=== PATIENT | male | born 1985 | race Caucasian/White ===

== ENCOUNTER 2020-02-04 08:07 | Outpatient (REF) | payer OTHER, SELFPAY ==
--- NOTE | 2020-02-04 08:10 | FL_ITS ---
EXAMINATION: FL BARIUM SWALLOW CLINICAL INFORMATION: Dysphagia. COMPARISON: None TECHNIQUE: Barium swallow examination is performed using fluoroscopic evaluation in addition to multiple fluoroscopic spot views. The patient is imaged both upright and prone and using both thick and thin sulfate along with effervescent granules. Fluoroscopy time: 1.6 minutes DAP: 11.505 Gycm2 Images: 53 FINDINGS: Following oral administration of thick barium and barium-coated turkey in upright view and different positions, there is normal propagation bolus from the oral cavity through the pharynx, esophagus into stomach without any evidence of obstruction, narrowing or stricture. No laryngeal penetration or aspiration seen. On oral administration of thin barium in prone lying position, there is normal distention of esophagus without intraluminal filling defect or narrowing. The GE junction is widely patent. On placing patient supine and in decubitus views, there is no hiatal hernia or reflux seen. FL/FL barium swallow IMPRESSION: Unremarkable barium swallow. Especially no evidence of esophageal obstruction or narrowing. No hiatal hernia or gastroesophageal reflux.
== END 2020-02-04 08:08 | disposition home or self-care (01) ==
LOC: HO.XRAY 08:07
PROVIDERS: PCP Internal Medicine; Visit Provider Internal Medicine Gastroenterology
DX: R13.12 Dysphagia, oropharyngeal phase (principal)
CPT/HCPCS: 74220

== ENCOUNTER 2020-02-11 22:07 | Emergency (ER) | payer OTHER, SELFPAY ==
--- NOTE | 2020-02-11 | XR_ITS ---
EXAMINATION: XR CHEST CLINICAL INFORMATION: Productive cough. COMPARISON: None TECHNIQUE: 2 views of the chest were obtained. FINDINGS: No significant abnormality is noted involving the heart, lungs, mediastinum, bony thorax or soft tissues. XR/XR chest 2V IMPRESSION: Unremarkable chest examination.
--- NOTE | 2020-02-11 22:23 | ECG_ITS ---
Test Reason : CHEST PAIN Blood Pressure : / mmHG Vent. Rate : 109 BPM Atrial Rate : 109 BPM P-R Int : 144 ms QRS Dur : 082 ms QT Int : 332 ms P-R-T Axes : 057 029 050 degrees QTc Int : 447 ms Sinus tachycardia Otherwise normal ECG No significant changes when compared with the previous EKG of 27 mar 2017 Referred By: Perla Bush Electronically Signed By:ENRIKE COATS
[2020-02-11 22:39] VITALS: BP 111/71; PULSE 96; RESP 16; TEMP 37.4; O2SAT 96; BMI 25.1
[2020-02-11 23:14] VITALS: PULSE 89
--- NOTE | 2020-02-11 23:43 | XR_ITS ---
EXAMINATION: XR CHEST CLINICAL INFORMATION: Chest pain COMPARISON: Earlier same date TECHNIQUE: 2 views of the chest were obtained. FINDINGS: No significant abnormality is noted involving the heart, lungs, mediastinum, bony thorax or soft tissues. XR/XR chest 2V IMPRESSION: Unremarkable examination.
--- NOTE | 2020-02-11 23:45 | ED.CHESTPAIN ---
HPI - Chest Pain General Chief Complaint: Chest Pain Stated Complaint: chest pain Time Seen by Provider: 02/11/20 22:23 Source: patient Mode of arrival: ambulatory Limitations: no limitations History of Present Illness HPI narrative: 34-year-old male who presents to emergency department for evaluation of chest pain. Patient states this morning at around 10:00 a.m. when he was lying on his couch had a sudden onset of pain in his chest. Describes the pain is a constant, pressure-like pain which waxes and wanes in intensity. States the pain is 2 to 3/10 at its most. States the pain does radiate to his left arm and he describes the pain in his left arm as heaviness which is also 2 to 3/10. Denied diaphoresis, nausea or vomiting. He denied shortness of breath but he does have dyspnea on exertion. He believes that the pain is exacerbated by exertion. He has had a dry, nonproductive cough x1 month. The patient denied fever, chills, abdominal pain, diarrhea, myalgias, arthralgias, loss of sense of taste or smell. He denied leg pain or swelling. He has not been any long trips. His only cardiac risk factor includes smoking cigarettes. Related Data Allergies Allergy/AdvReac Type Severity Reaction Status Date / Time watermelon [WATERMELON] Allergy Unknown SWELLING Verified 02/11/20 22:39 Review of Systems Review of Systems: Yes all other systems are reviewed and are negative Constitutional: Constitutional: Reports as per HPI Eyes: Eyes: Reports as per HPI ENT: Reports as per HPI Cardiovascular: Cardiovascular: Reports as per HPI Respiratory: Respiratory: Reports as per HPI Gastrointestinal: Gastrointestinal: Reports as per HPI Genitourinary: Genitourinary: Reports as per HPI Musculoskeletal: Musculoskeletal: Reports as per HPI Integumentary/Breasts: Skin/Breast: Reports as per HPI Neurologic: Reports as per HPI and Reports Abnormal speech present Psychiatric: Psychiatric: Reports as per HPI Allergic/Immunologic: Allergic/Immunologic: Reports as per HPI PMFSH Past Medical History PMF Narrative: The patient smokes 1/2 pack of cigarettes per day times 17 years. He denies alcohol use. He smokes marijuana daily. Medical History GERD (gastroesophageal reflux disease) No known health problems Social History Social History Smoking Status: Current every day smoker Use of substances other than those prescribed or required for medical reasons: Yes Substance Use Type: Marijuana Substance Use Frequency: Daily Advance Directives: No Advance Directives Information Provided: No Physical Exam Vital Signs: Vital Signs: Last Vital Signs Temp 99.3 F 02/11/20 22:39 Pulse 66 02/12/20 01:43 Resp 16 02/12/20 01:43 BP 102/68 02/12/20 01:43 Pulse Ox 98 02/12/20 01:43 Body Mass Index 25.1 Const: General: cooperative, no acute distress, alert and awake Orientation/consciousness: oriented to person and oriented to place Limitations: no limitations HENMT: Head: Yes normal to inspection, Yes normocephalic and Yes atraumatic Ears: external ears normal General nose exam: Normal external nose present Face and sinus: Yes normal facial exam Mouth: Normal oral and palatal mucosa present Throat: Yes posterior oropharynx normal Eyes: General: appearance normal, both eyes and all related structures Periorbital: periorbital findings normal Eyelids: Yes eyelids normal Conjunctivae: conjunctivae normal Sclerae: sclerae normal Corneas: corneas normal Pupils: Equal, round and reactive pupils present Direct Ophthalmoscopy: normal light reflex Neck: Neck: Yes normal visual inspection and Yes supple Lymphatic: no lymphadenopathy noted Chest: Chest palpation & inspection: normal inspection of the chest and tenderness sternum and costochondral junction Resp: Effort & Inspection: normal respiratory effort, abnormal respiratory pattern, no audible wheezes and no respiratory distress Auscultation: clear to auscultation bilaterally, no crackles, no rales, no rhonchi and no wheezes Cardio: Rate: regular rate Rhythm: regular rhythm Heart sounds: S1 normal heart sound present, S2 normal heart sound present and no murmurs GI: Inspection: No distended Palpation (GI): Soft to palpation, nontender, no guarding and No hepatosplenomegaly present Auscultation: normal bowel sounds : General: Yes no CVA tenderness Back/Spine/Pelvis: Back: no CVA tenderness Skin: General skin exam: no rashes or lesions noted Lesions: no lesions Rashes: no rashes Wounds: no wounds Neuro: General: oriented to person and oriented to place Cranial nerves: Yes CN's II-XII intact bilaterally and Yes Equal, round and reactive pupils present Cognition (Neuro): normal cognition Speech: Abnormal speech present Motor exam (neuro): 5/5 motor strength present throughout Extrem: General: Yes normal to inspection, Yes full ROM, Yes no pedal edema and Yes no calf tenderness Psych: Appearance: grossly normal Mental Status: mental status grossly normal Speech and movement: Clear speech present Affect: normal affect Thought process: Normal thought process present Course Course Course Narrative: 34-year-old male who presents emergency department for evaluation of sudden onset chest pain that began 10:00 a.m., the pain has been constant, is worse with exertion. Physical examination did reveal E was tachycardic with a pulse of 100. He does have chest wall tenderness. The patient is PERC positive therefore I will do a cardiac and PE workup on the patient. Patient's 12 lead EKG was unremarkable except for sinus tachycardia. Patient was ordered to get Toradol 30 mg IV. 0236: The patient's laboratory evaluation was normal including non elevated troponin and a non elevated D-dimer. The patient's pain is significantly better after receiving IV Toradol. Chest x-ray was unremarkable. My impression is that the patient's symptoms are consistent with costochondritis and I did discuss this with the patient. He was advised to take ibuprofen 600 mg every 6 hours as needed for pain and Tylenol 1000 mg every 4-6 hours as needed for pain. He was given printed instructions on costochondritis. He was advised to return to the emergency department if his symptoms get worse or if he develops any new symptoms that are concerning to him. MDM - Chest Pain Lab Data Result diagrams: 02/12/20 00:05 02/12/20 00:05 Labs: Lab Results 02/12/20 02/12/20 02/12/20 Range/Units 00:05 00:05 00:05 WBC 10.0 (4.8-10.8) X10*3/uL RBC 4.75 (4.60-5.80) X10*6/uL Hgb 13.1 L (14.0-18.0) g/dl Hct 39.9 L (42-52) % MCV 84.0 (80-98) fL MCH 27.6 (27.0-33.0) pg MCHC 32.8 (31.0-36.0) g/dl RDW 14.6 (11.0-16.0) % Plt Count 263 (160-400) X10*3/uL MPV 9.9 (9.4-12.4) fL Immature Gran % (Auto) 0.2 (0.0-0.4) % Neut % (Auto) 52.2 (45-73) % Lymph % (Auto) 37.0 (20-40) % [place] % (Auto) 6.5 (2-11) % Eos % (Auto) 3.6 (0-4) % Baso % (Auto) 0.5 (0-2) % Lymph # (Auto) 3.7 (1.2-4.9) X10*3/uL [place] # (Auto) 0.7 (0.1-1.2) X10*3/uL Eos # (Auto) 0.4 (0.0-0.4) X10*3/uL Baso # (Auto) 0.1 (0.0-0.2) X10*3/uL Abs Immat Gran (auto) 0.02 (0.00-0.03) X10*3/uL Absolute Neuts (auto) 5.2 (2.0-8.3) X10*3/uL Absolute Nucleated RBC 0.000 (0.0-0.012) X10*3/uL Nucleated RBC % (auto) 0.0 (0.0-0.2) /100WBC D-Dimer NG/ML Sodium 138 (135-145) mmol/L Potassium 3.5 (3.3-5.1) mmol/l Chloride 101 (96-108) mmol/L Carbon Dioxide 28 (22-29) mmol/L Anion Gap 13 (12-20) BUN 15 (9-16) mg/dL Creatinine 1.20 (0.5-1.4) mg/dL Estim Creat Clear Calc 90.4 Estimated GFR > 60 Fasting Glucose 85 (60-99) mg/dL Calcium 9.3 (8.4-10.2) mg/dL Total Bilirubin 0.2 (0.0-1.0) mg/dL AST 17 (5-37) U/L ALT 13 (0-40) U/L Alkaline Phosphatase 84 (39-117) U/L Troponin I High Sens < 3.5 (<3.5-35.0) ng/L Total Protein 7.2 (6.5-8.0) g/dL Albumin 4.4 (3.5-5.0) g/dL 02/12/20 Range/Units 00:05 WBC (4.8-10.8) X10*3/uL RBC (4.60-5.80) X10*6/uL Hgb (14.0-18.0) g/dl Hct (42-52) % MCV (80-98) fL MCH (27.0-33.0) pg MCHC (31.0-36.0) g/dl RDW (11.0-16.0) % Plt Count (160-400) X10*3/uL MPV (9.4-12.4) fL Immature Gran % (Auto) (0.0-0.4) % Neut % (Auto) (45-73) % Lymph % (Auto) (20-40) % [place] % (Auto) (2-11) % Eos % (Auto) (0-4) % Baso % (Auto) (0-2) % Lymph # (Auto) (1.2-4.9) X10*3/uL [place] # (Auto) (0.1-1.2) X10*3/uL Eos # (Auto) (0.0-0.4) X10*3/uL Baso # (Auto) (0.0-0.2) X10*3/uL Abs Immat Gran (auto) (0.00-0.03) X10*3/uL Absolute Neuts (auto) (2.0-8.3) X10*3/uL Absolute Nucleated RBC (0.0-0.012) X10*3/uL Nucleated RBC % (auto) (0.0-0.2) /100WBC D-Dimer < 200 NG/ML Sodium (135-145) mmol/L Potassium (3.3-5.1) mmol/l Chloride (96-108) mmol/L Carbon Dioxide (22-29) mmol/L Anion Gap (12-20) BUN (9-16) mg/dL Creatinine (0.5-1.4) mg/dL Estim Creat Clear Calc Estimated GFR Fasting Glucose (60-99) mg/dL Calcium (8.4-10.2) mg/dL Total Bilirubin (0.0-1.0) mg/dL AST (5-37) U/L ALT (0-40) U/L Alkaline Phosphatase (39-117) U/L Troponin I High Sens (<3.5-35.0) ng/L Total Protein (6.5-8.0) g/dL Albumin (3.5-5.0) g/dL ECG Data ECG #1: Attestation: I personally reviewed and interpreted this ECG as follows: ECG interpretation date: 02/11/20 ECG interpretation time: 22:16 Prior ECG tracings: not available for review Interpretation: Sinus tachycardia with a rate of 109, normal OK, QRS and QTC intervals, no ST segment elevation or depression, no old EKG for comparison Discharge Plan Discharge Clinical Impression: Acute costochondritis Patient Disposition: Home, Self-Care Instructions: Costochondritis (ED) Additional Instructions: Your blood work today was normal which is reassuring. Your EKG revealed a slightly fast heart rate but otherwise was unremarkable. Your chest x-ray was normal. Your presentation and physical findings are consistent with inflammation of the joints of your chest (costochondritis). Take ibuprofen 200 mg pills, 3 pills every 6 hours as needed for pain. Take Tylenol extra strength 500 mg pills, 2 pills every 4-6 hours as needed for pain. Follow-up with your doctor in 2 days for re-evaluation. Please return to the emergency department if your symptoms get worse or if you develop any new symptoms that are concerning to you. Referrals: Yvon Huntley MD [Primary Care Provider] - 2 days
[2020-02-12 00:03] VITALS: BP 120/77; PULSE 75; RESP 16; O2SAT 100
[2020-02-12 00:10] LABS: MANUAL DIFF FLAG NO
[2020-02-12 00:12] LABS: Basophils Absolute Auto 0.1 X10*3/uL (0.0-0.2); Basophils Percent Auto 0.5 % (0-2); Eosinophils Absolute Auto 0.4 X10*3/uL (0.0-0.4); Eosinophils Percent Auto 3.6 % (0-4); Hematocrit 39.9 % (42-52); Hemoglobin 13.1 g/dl (14.0-18.0); Imm Gran Abs Auto 0.02 X10*3/uL (0.00-0.03); Imm Gran Pct Auto 0.2 % (0.0-0.4); Lymphocytes Absolute Auto 3.7 X10*3/uL (1.2-4.9); Mean Corpuscular HGB Conc 32.8 g/dl (31.0-36.0); Mean Corpuscular Hemoglobin 27.6 pg (27.0-33.0); Mean Platelet Volume 9.9 fL (9.4-12.4); Monocytes Absolute Auto 0.7 X10*3/uL (0.1-1.2); Monocytes Percent Auto 6.5 % (2-11); Neutrophils Absolute Auto 5.2 X10*3/uL (2.0-8.3); Neutrophils Percent Auto 52.2 % (45-73); Platelet Count 263 X10*3/uL (160-400); Red Blood Count 4.75 X10*6/uL (4.60-5.80); Red Cell Distribution Width 14.6 % (11.0-16.0)
[2020-02-12] MEDS: Ketorolac Tromethamine 15 MG/ML VIAL 30 MG IV (00:13)
[2020-02-12 00:27] LABS: D Dimer < 200 NG/ML
[2020-02-12 00:40] LABS: Alanine Aminotransferase 13 U/L (0-40); Albumin Level 4.4 g/dL (3.5-5.0); Alkaline Phosphatase 84 U/L (39-117); Anion Gap 13 (12-20); Aspartate Amino Transferase 17 U/L (5-37); Bilirubin Total 0.2 mg/dL (0.0-1.0); Blood Urea Nitrogen 15 mg/dL (9-16); Calcium 9.3 mg/dL (8.4-10.2); Carbon Dioxide 28 mmol/L (22-29); Chloride 101 mmol/L (96-108); Creatinine Clr Calc Pharmacy 90.4; Estimated Glomerular Filt Rate > 60; Glucose Fasting 85 mg/dL (60-99); Potassium 3.5 mmol/l (3.3-5.1); Sodium 138 mmol/L (135-145); Total Protein 7.2 g/dL (6.5-8.0)
[2020-02-12 00:46] LABS: Troponin-I High Sensitivity < 3.5 ng/L (<3.5-35.0)
[2020-02-12 01:43] VITALS: BP 102/68; PULSE 66; RESP 16; O2SAT 98
== END 2020-02-12 02:57 | disposition home or self-care (01) ==
PROVIDERS: Emergency Provider Emergency Medicine Emergency Medical Services; PCP Internal Medicine
DX: M94.0 Chondrocostal junction syndrome [Tietze] (principal); F17.200 Nicotine dependence, unspecified, uncomplicated
CPT/HCPCS: 36415; 71046; 80053; 84484; 85025; 85379; 93005; 96374; 99284; J1885

== ENCOUNTER 2020-05-05 22:23 | Emergency (ER) | payer OTHER, SELFPAY ==
[2020-05-05 22:31] VITALS: BP 118/81; PULSE 100; RESP 16; TEMP 36.8; O2SAT 99; BMI 24.3
[2020-05-05 22:57] LABS: COVID-19 Test Negative (Negative)
--- NOTE | 2020-05-05 23:12 | ED_ITS ---
HPI - General Adult General Chief complaint: Headache Stated complaint: head pain possible covid exposure Time Seen by Provider: 05/05/20 23:06 Source: patient Mode of arrival: ambulatory Limitations: no limitations History of Present Illness HPI narrative: Patient comes emergency room complaining of intermittent head pressure with no headache sensation for the last 2-3 days. Patient requesting COVID testing. Patient states he has had sick contacts but unknown if the contacts were positive for COVID. Patient denies chest pain, no shortness of breath, no fever. Patient denies coughing, runny nose, ear pain. Related Data Allergies Allergy/AdvReac Type Severity Reaction Status Date / Time watermelon [WATERMELON] Allergy Unknown SWELLING Verified 05/05/20 22:35 Review of Systems Review of Systems: Constitutional : No Weight loss, No Fever, No Chills, No Night Sweats, No Fatigue, No Malaise ENT/Mouth : No Hearing loss, No Ear Pain, No Nasal Congestion, No Sinus Pain, No Hoarseness, No sore throat, No Rhinorrhea, No Swallowing Difficulty Eyes: No Eye Pain, No Swelling, No Redness, No Foreign Body, No Discharge, No Vision Changes Cardiovascular : No Chest Pain, No SOB, No Dyspnea on Exertion, No Orthopnea, No Edema, No Palpitations Respiratory : No Cough, No Sputum, No Wheezing, No Smoke Exposure, No Dyspnea Gastrointestinal : No Nausea, No Vomiting, No Diarrhea, No Constipation, No abdominal Pain, No Hematochezia, No Melena Genitourinary : no irregular bleeding, No Dysuria, No Urinary Frequency, No Hematuria, No Urinary Incontinence, No Urgency, No Flank Pain, No Urinary Flow Changes, No Hesitancy Musculoskeletal : No joint pain, No Myalgias, No Joint Swelling Skin : No Skin Lesions, No rash Neuro : No Weakness, No Numbness, No Paresthesias, No Loss of Consciousness, No Dizziness, No Headache but complaining of head pressure Psych : No Anxiety/Panic, No Depression, No SI/HI/AH/VH, No Social Issues, Heme/Lymph: No Bruising, No Bleeding,No Lymphadenopathy Endocrine : No Polyuria, No Polydipsia, No Temperature Intolerance PMFSH Past Medical History Medical History GERD (gastroesophageal reflux disease) No known health problems Social History Social History Smoking Status: Current every day smoker Substance Use Type: Marijuana Advance Directives: No Advance Directives Information Provided: No Physical Exam Vital Signs: Vital Signs: Last Vital Signs Temp 98.2 F 05/05/20 22:31 Pulse 100 05/05/20 22:31 Resp 16 05/05/20 22:31 BP 118/81 05/05/20 22:31 Pulse Ox 99 05/05/20 22:31 Body Mass Index 24.3 Appearance: Alert. Oriented X3. No acute distress. Eyes: Pupils equal, round and reactive to light. ENT: Pharynx normal. Neck: Normal inspection. Neck supple. No lymph nodes noted. No crepitus CVS: Normal heart rate and rhythm. Pulses normal. Normal S1 and S2 Respiratory: No respiratory distress. Breath sounds normal. No Wheezing. No rales Abdomen: Soft and nontender. No rigidity. No distention. good BS x4 Skin: Skin warm and dry. Normal skin color. Normal skin turgor. Extremities: No lower extremity edema. No lower extremity edema. No Lacerations. No Rash Neuro: Oriented X 3. No motor deficit. No sensory deficit. Moving all ex termities. No slurred speech. Course Course Course Narrative: Patient's physical exam is normal. Patient tested negative for COVID-19. Patient has no URI symptoms, patient likely having tension headaches. Medical Decision Making Lab Data Labs: Lab Results 05/05/20 Range/Units 22:37 COVID-19 (WILLIAM) Negative (Negative) COVID-19 Clin Com See Note Discharge Plan Discharge Clinical Impression: Headache Patient Disposition: Home, Self-Care Instructions: Acute Headache (ED) Additional Instructions: You tested negative for COVID-19. Please follow-up with your primary care physician tomorrow. If you have any worsening or new symptoms, please return to the emergency room or call 911
== END 2020-05-05 23:30 | disposition home or self-care (01) ==
PROVIDERS: Emergency Provider Emergency Medicine; PCP Internal Medicine
DX: R51.9 Headache, unspecified (principal); F17.200 Nicotine dependence, unspecified, uncomplicated; F12.90 Cannabis use, unspecified, uncomplicated; Z20.822 Contact with and (suspected) exposure to COVID-19; Z71.6 Tobacco abuse counseling
CPT/HCPCS: 36415; 87635; 99282

== ENCOUNTER → 2020-08-09 15:09 | Outpatient (BNVA) | payer OTHER, SELFPAY | PROVIDERS: PCP Internal Medicine; Visit Provider Surgery | DX: K64.8 Other hemorrhoids (principal) | CPT/HCPCS: 46600; 99202 ==

== ENCOUNTER 2022-03-18 23:59 | Emergency (ER) | payer OTHER, SELFPAY ==
[2022-03-19 00:02] VITALS: BP 122/81; PULSE 78; RESP 16; TEMP 36.9; O2SAT 98; BMI 23.7
--- NOTE | 2022-03-19 00:22 | ED_ITS ---
HPI - Dental/Oral General Chief complaint: Dental/Oral Stated complaint: tooth ache Time Seen by Provider: 03/19/22 00:13 Source: patient Mode of arrival: ambulatory Limitations: no limitations History of Present Illness HPI Narrative: Patient with dental care is has not seen a dentist for a while comes here for in creased pain and left upper and lower molar no fever no chills Related Data Home Medications Medication Instructions Recorded Confirmed [id number] 250 2 tab PO Q6H PRN 08/09/20 mg-250 mg-65 mg tablet (Excedrin Extra Strength) Previous Rx's Medication Instructions Recorded amoxicillin 875 mg-potassium 1 tab PO BID #20 tabs 03/19/22 clavulanate 125 mg tablet oxycodone-acetaminophen 5 mg-325 1 tab PO Q6H PRN pain #20 tabs 03/19/22 mg tablet (Percocet) Allergies Allergy/AdvReac Type Severity Reaction Status Date / Time watermelon [WATERMELON] Allergy Unknown SWELLING Verified 08/09/20 15:21 Review of Systems Review of Systems: Yes all other systems are reviewed and are negative [facility] Past Medical History Medical History GERD (gastroesophageal reflux disease) Internal hemorrhoids No known health problems Social History Social History Alcohol intake: never Substance Use Type: Marijuana Advance Directives: No Advance Directives Information Provided: No Physical Exam Vital Signs: Vital Signs: Last Vital Signs Temp 98.5 F 03/19/22 00:02 Pulse 78 03/19/22 00:02 Resp 16 03/19/22 00:02 BP 122/81 03/19/22 00:02 Pulse Ox 98 03/19/22 00:02 O2 Del Method 03/19/22 00:02 BMI result Body Mass Index 23.7 HEENT: Teeth image: 1. Cavity with tenderness no significant gum swelling 2. Cavity tenderness no significant gum swelling Throat: Yes posterior oropharynx normal Resp: Effort & Inspection: normal respiratory effort Auscultation: clear to auscultation bilaterally Medications Administered Discontinued Medications Generic Name Dose Route Start Last Admin Trade Name Freq PRN Reason Stop Dose Admin Amoxicillin/Clavulanate Potassium 875 mg 03/19/22 00:22 03/19/22 00:33 Amoxicillin/Potassium Clav 875 Mg Tablet PO 03/19/22 00:23 875 mg ONCE ONE Administration Oxycodone HCl 10 mg 03/19/22 00:22 03/19/22 00:33 Oxycodone Hcl Immed Release 5 Mg Tablet PO 03/19/22 00:23 10 mg ONCE ONE Administration Discharge Plan Discharge Clinical Impression: Dental caries Patient Disposition: Home, Self-Care Instructions: Toothache (ED) Additional Instructions: Antibiotics and pain medication as prescribed follow up with dentist Prescriptions: New oxycodone-acetaminophen [Percocet] 5-325 mg tablet 1 tab PO Q6H PRN (Reason: pain) Qty: 20 0RF Rx Instructions: Partial Fill upon patient request. amoxicillin-pot clavulanate 875-125 mg tablet 1 tab PO BID Qty: 20 0RF No Action Excedrin Extra Strength 250-250-65 mg tablet 2 tab PO Q6H PRN Stand Alone Forms: Work/School Release Interventions: ED Discharge Assessment Last Done: 03/19/22 00:41 Discharge Date/Time: 03/19/22 00:42
[2022-03-19] MEDS: oxyCODONE HCl Immed Release 5 MG TABLET 10 MG PO (00:33)
[2022-03-19] MEDS: Amoxicillin/Potassium Clav 875 MG TABLET PO (00:33)
--- OUTSIDE RECORDS SUMMARY | 2022-03-19 00:33 | XMS_ITS ---
:1985 Author Organization [facility] Address [address] [place] [address] Care Team Providers Name Role Phone Surendra Galaviz Jr Unavailable Unavailable PROBLEMS Type Condition ICD9-CM Code RTQ02-AR Code Onset Condition SNO MED Code Dates Status Problem H. pylori A04.8 Active 804696591 infection Problem Oropharyngeal R13.12 Active 071726 02 dysphagia Problem Epigastric pain R10.13 Active 7992 2008 ALLERGIES Substance Reaction Event Type Date Status sultana da silva Unknown Non Drug Allergy Jan, A ctive ENCOUNTERS Encounter Location Date Diagnosis [place] [address] Feb, [facility] [address] [place] [address] [place] [address] Jan, [facility] [address] [place] [address] [place] [address] Jan, Orophary ngeal dysphagia [facility] [address] [place] R13.12 and H. pylori [id number] infection A04.[address] [place] [address] Jan, [facility] [address] [place] [address] [place] [address] Nov, [facility] [address] [place] [address] [place] [address] Oct, [facility] [address] [place] [address] [facility] [address] [place] [address] Oct, Epigastric pain R10.13 and [place] [id number] GERD with esophagitis K21.0 [facility] [address] Sep, Epigastr ic pain R10.13 [facility] [address] [place] [address] IMMUNIZATIONS No Known Immunizations SOCIAL HISTORY Qualifiers Date Current Smoker age 17 REASON FOR REFERRAL FUNCTIONAL STATUS PLAN OF CARE Activity Details Follow Up prn Reason: Pending Test XR BARIUM SWALLOW-ESOPHAGUS Future/Pending Procedure UPPER GI ENDOSCOPY 20191001 VITAL SIGNS Weight 175 lbs 2020-01-22 Weight 174 lbs 2019-10-01 Height 69 in 2020-01-22 Height 69 in 2019-10-01 BMI 25.84 kg/m2 2020-01-22 BMI 25.69 kg/m2 2019-10-01 Temperature 96.8 degrees Fahrenheit 2020-01-22 Temperature 98.6 degrees Fahrenheit 2019-10-01 Blood pressure systolic 000 mm Hg 2020-01-22 Blood pressure diastolic 00 mm Hg 2020-01-22 MEDICATIONS Medication Instructions Dosage Frequency Start End Date Duration Stat us Date Omeprazole 20 Orally Once a 2 capsule 24h Ac tive MG day Omeprazole 40 Orally Once a 1 capsule 24h Jan, day(s) Active MG day 2019 Excedrin Extra Active Strength PROCEDURES Procedure Date Ordered Result Body Site BP NOT ASSESS PATIENT NOT ELIGIBLE October 01, 2019 PT TOBACCO SCREEN RCVD TLK October 01, 2019 BP NOT ASSESS PATIENT NOT ELIGIBLE Jan 22, 2020 TOBACCO NON-USER Jan 22, 2020 DOC MEDS VERIFIED W/PT OR RE October 01, 2019 DOC MEDS VERIFIED W/PT OR RE Jan 22, 2020 UPPER GI ENDOSCOPY, BIOPSY Oct 10, 2019 RESULTS Name Result Date Reference Range GI BIOPSY 2019-10-10 G.I. BIOPSY REASON FOR VISIT barium swallow, appt for dysphagia , patient presents today for H. pylori, THORAT CONCERNS, Upper Gastric Pain , Patient having Symptoms , epigastric pain, patient presents today for Upper Gastric Pain Insurance Providers [facility] Member Patient Patient Patient Patient Patient Subscriber Subscriber Subscriber Group Insurance Plan Plan Plan Plan ID Relationship Address Phone Name Date of ID Name Date of No Type Insurance Insurance Insurance Coverage to Subscriber Address Phone Name Dates Jocelyn [phone] Jocelyn self [place] [id number] [place] [id number] [place] [address] Plan [id number] MEDICAID [phone] MEDICAID self DOLLVY [id number] [facility] [id number] [facility] [address] [facility] [id number]
== END 2022-03-19 00:42 | disposition home or self-care (01) ==
PROVIDERS: Emergency Provider Internal Medicine
DX: K02.9 Dental caries, unspecified (principal); Z79.899 Other long term (current) drug therapy
CPT/HCPCS: 99283

== ENCOUNTER 2022-03-22 22:27 | Emergency (ER) | payer OTHER, SELFPAY ==
[2022-03-22 22:30] VITALS: BP 135/90; PULSE 104; RESP 18; TEMP 36.4; O2SAT 100; BMI 24.4
--- NOTE | 2022-03-22 23:19 | ED_ITS ---
HPI - Dental/Oral General Chief complaint: Dental/Oral Stated complaint: toothache, here 2-3 days ago, same thing Time Seen by Provider: 03/22/22 23:19 Source: patient Mode of arrival: ambulatory History of Present Illness HPI Narrative: 36-year-old male with no significant past medical history presenting to ED complaining of acute on chronic dental/ gum pain x few days. Patient was seen and treated in our ED on 03/19 for similar symptoms prescribed Augmentin and Percocet without relief. States symptoms are unchanged just persistent. Admits has follow-up with his dentist next week. Denies fever, chills, oral swelling, difficulty swallowing, painful swallowing, drainage from mouth, recent dental procedures. MD Complaint: tooth pain Related Data Home Medications Medication Instructions Recorded Confirmed [id number] 250 2 tab PO Q6H PRN 08/09/20 mg-250 mg-65 mg tablet (Excedrin Extra Strength) Previous Rx's Medication Instructions Recorded amoxicillin 875 mg-potassium 1 tab PO BID #20 tabs 03/19/22 clavulanate 125 mg tablet oxycodone-acetaminophen 5 mg-325 1 tab PO Q6H PRN pain #20 tabs 03/19/22 mg tablet (Percocet) Allergies Allergy/AdvReac Type Severity Reaction Status Date / Time watermelon [WATERMELON] Allergy Unknown SWELLING Verified 08/09/20 15:21 Review of Systems Review of Systems: Constitutional: No Fever, No Chills ENT/Mouth: +dental pain, +gingival pain, No Ear Pain, No Nasal Congestion, No Sinus Pain, No Hoarseness, No sore throat, No Rhinorrhea, No Swallowing Difficulty Cardiovascular: No Chest Pain, No SOB Respiratory: No Cough Gastrointestinal: No Nausea, No Vomiting, No Diarrhea, No Constipation, No Abdominal pain Musculoskeletal: No joint pain, No Myalgias Skin: No Skin Lesions, No rash Neuro: No Weakness Yes all other systems are reviewed and are negative Constitutional: Constitutional: Reports as per [facility] Past Medical History Attestation statement: The following information was validated with the patient. Medical History GERD (gastroesophageal reflux disease) Internal hemorrhoids No known health problems Social History Social History Alcohol intake: never Substance Use Type: Marijuana Advance Directives: No Advance Directives Information Provided: No Physical Exam Vital Signs: Vital Signs: Last Vital Signs Temp 97.5 F 03/22/22 22:30 Pulse 104 H 03/22/22 22:30 Resp 18 03/22/22 22:30 BP 135/90 H 03/22/22 22:30 Pulse Ox 100 03/22/22 22:30 O2 Del Method 03/22/22 22:30 BMI result Body Mass Index 24.4 Const: General: cooperative, healthy appearing and no acute distress Orientation/consciousness: patient oriented x3 Limitations: no limitations HEENT: Other: Left lower bicuspid chronically cracked, mild gingival swelling noted & tenderness. No erythema, fluctuance/induration left upper molar with mild tenderness. No appreciable swelling/ erythema or abscess Head: Yes normal to inspection and Yes atraumatic Ears: hearing grossly normal bilaterally, external ears normal, TM's normal bilaterally and mastoids normal General nose exam: Normal external nose present Face and sinus: Yes normal facial exam Mouth: Normal oral and palatal mucosa present Teeth and gingiva: abnormal tooth and associated gingiva, caries and poor dentition Throat: Yes posterior oropharynx normal, Yes tonsils normal, Yes uvula midline, No uvula laterally displaced and No uvular edema Eyes: General: appearance normal, both eyes and all related structures EOM: EOMs intact bilaterally Neck: Neck: Yes normal visual inspection, Yes full ROM, Yes no lymphadenopathy, Yes no meningeal signs, Yes supple and No anterior neck swelling Resp: Effort & Inspection: normal respiratory effort, not labored, no respiratory distress, no stridor and not tachypneic Cardio: Rate: regular rate Heart sounds: S1 normal heart sound present and S2 normal heart sound present Skin: Rashes: no rashes Wounds: no wounds Neuro: General: patient oriented x3, tone normal and no meningeal signs Gait exam (Neuro): Normal gait present Extrem: General: Yes normal to inspection Medical Decision Making Medical Decision Making MDM Narrative: 36-year-old male with no significant past medical history presenting to ED complaining of acute on chronic dental/ gum pain x few days. on exam vital signs stable, NAD, nontoxic appearing, mild gingival tenderness and swelling noted, no evidence of dental or gingival abscess, oropharynx otherwise within normal limits. No facial swelling. Concern for continue dental caries/gingivitis. No evidence of CERTIFIED HISTOLOGIC TECHNICIAN. Patient was prescribed 20 pills of Percocet 3 days ago. will give 1 time dose of p.o. morphine in the ED Recommended continuation previously prescribed antibiotic and pain control, and close follow-up with dentist Results discussed with patient including worrisome signs and symptoms and strict return precautions, and when to return to the emergency department. They verbalized understanding and feel safe for discharge at this time. Differential Diagnosis Differential Diagnoses: The differential diagnosis associated with the presentation includes as above Discharge Plan Discharge Clinical Impression: Toothache Patient Disposition: Home, Self-Care Instructions: Toothache (ED) Additional Instructions: continue taking previously prescribed antibiotic and pain medication in addition to the medications prescribed take ibuprofen. You may also take Tylenol however be aware Percocet has Tylenol mixed in do not exceed 4 g of Tylenol in 1 day. Follow up with her dentist as scheduled. If symptoms persist or worsen/ pain becomes unbearable you have fever return to the ED Prescriptions: No Action oxycodone-acetaminophen [Percocet] 5-325 mg tablet 1 tab PO Q6H PRN (Reason: pain) Qty: 20 0RF Rx Instructions: Partial Fill upon patient request. amoxicillin-pot clavulanate 875-125 mg tablet 1 tab PO BID Qty: 20 0RF Excedrin Extra Strength 250-250-65 mg tablet 2 tab PO Q6H PRN Referrals: Monster Matos [Dentist] - Buddy Castano DMD [Dentist] - Linda Paige DMD [Dentist] - Elmer Frausto DDS [Physician] -
[2022-03-23] MEDS: Morphine Sulfate Immed Release 15 MG TABLET PO (00:36)
== END 2022-03-23 00:43 | disposition home or self-care (01) ==
PROVIDERS: Emergency Provider Internal Medicine; PCP Internal Medicine
DX: K08.89 Other specified disorders of teeth and supporting structures (principal); F12.90 Cannabis use, unspecified, uncomplicated
CPT/HCPCS: 99283

== ENCOUNTER 2022-03-23 03:32 | Emergency (ER) | payer OTHER, SELFPAY ==
--- NOTE | 2022-03-23 03:44 | ED.DENTAL ---
HPI - Dental/Oral General Stated complaint: was here earlier, says med not working Time Seen by Provider: 03/23/22 03:43 Source: patient Mode of arrival: ambulatory Limitations: no limitations History of Present Illness HPI Narrative: Patient with history of Dental caries was seen here on and again earlier yesterday comes back as does not any pain medication and unable to get the tooth fixed asking for pain medications pain is bothering him a lot with cold feeling Related Data Home Medications Medication Instructions Recorded Confirmed [id number] 250 2 tab PO Q6H PRN 08/09/20 mg-250 mg-65 mg tablet (Excedrin Extra Strength) Previous Rx's Medication Instructions Recorded amoxicillin 875 mg-potassium 1 tab PO BID #20 tabs 03/19/22 clavulanate 125 mg tablet oxycodone-acetaminophen 5 mg-325 1 tab PO Q6H PRN pain #20 tabs 03/19/22 mg tablet (Percocet) oxycodone 5 mg tablet 5 mg PO Q6H PRN pain #20 tabs 03/23/22 Allergies Allergy/AdvReac Type Severity Reaction Status Date / Time watermelon [WATERMELON] Allergy Unknown SWELLING Verified 08/09/20 15:21 Review of Systems Review of Systems: Yes all other systems are reviewed and are negative PMFSH Past Medical History Medical History GERD (gastroesophageal reflux disease) Internal hemorrhoids No known health problems Social History Social History Alcohol intake: never Substance Use Type: Marijuana Advance Directives: No Advance Directives Information Provided: Yes Physical Exam HEENT: Teeth image: 1. Deep cavity no surrounding tissue swelling Medical Decision Making Medical Decision Making MDM Narrative: Patient already on Augmentin give prescription of oxycodone advised to follow with dentist Discharge Plan Discharge Clinical Impression: Toothache Patient Disposition: Home, Self-Care Instructions: Toothache (ED) Additional Instructions: Take pain medication as prescribed and follow with dentist Prescriptions: New oxycodone 5 mg tablet 5 mg PO Q6H PRN (Reason: pain) Qty: 20 0RF Rx Instructions: Partial Fill upon patient request. No Action oxycodone-acetaminophen [Percocet] 5-325 mg tablet 1 tab PO Q6H PRN (Reason: pain) Qty: 20 0RF Rx Instructions: Partial Fill upon patient request. amoxicillin-pot clavulanate 875-125 mg tablet 1 tab PO BID Qty: 20 0RF Excedrin Extra Strength 250-250-65 mg tablet 2 tab PO Q6H PRN
[2022-03-23 03:51] VITALS: BP 126/86; PULSE 85; RESP 18; TEMP 36.6; O2SAT 100; BMI 25.1
== END 2022-03-23 04:01 | disposition home or self-care (01) ==
PROVIDERS: Emergency Provider Internal Medicine; PCP Internal Medicine
DX: K08.89 Other specified disorders of teeth and supporting structures (principal)
CPT/HCPCS: 99282; 99283